=== PATIENT | female | born 1940 | race Caucasian/White ===

== ENCOUNTER 2024-08-07 17:55 | Inpatient (IN) | payer MEDICARE ==
[2024-08-07] MEDS ORDERED: Ketamine In 0.9 % NaCl 50 MG/5 ML SYRINGE ONE (18:01)
[2024-08-07] MEDS ORDERED: Rocuronium Bromide 10 MG/ML (10ML VIAL) ONE (18:03)
[2024-08-07 18:26] LABS: #Basophils 0.03 10x3/uL (0.0-0.2); %Basophils 0.5 % (0.0-1.0); %Eosinophils 3.8 % (0.0-10.0); %Lymphocytes 29.4 % (21.0-51.0); %Monocytes 9.1 % (0.0-10.0); Hematocrit 29.7 % (36.0-47.0); Hemoglobin 8.8 g/dL (12.0-16.0); Mean Corpuscular HGB CONC 29.6 g/dL (32.0-36.0); Mean Corpuscular Hemoglobin 25.4 pg (27.0-31.0); Mean Corpuscular Volume 85.8 fL (78.0-98.0); Mean Platelet Volume 11.7 fL (7.4-10.4); Platelet Count 137 10x3/uL (130-400); RBC Distribution Width 17.2 % (11.5-14.5); Red Blood Cell (RBC) Count 3.46 mill/uL (4.20-5.40)
[2024-08-07] MEDS ORDERED: Propofol 1,000 MG/100 ML VIAL IV ONE (18:26)
[2024-08-07 18:27] LABS: Actual Bicarbonate (HCO3a) 25.6 mEq/L (22-28); Analyzer IN Cardio ER; CO2 Tension 31.8 mmHg (35.0-45.0); Calcium, Ionized (arterial) 1.03 mmol/L (1.12-1.30); Carboxyhemoglobin (COHb) 0.2 gm% (0.0-3.0); Hematocrit-ABG 28 % (36.0-47.0); Hemoglobin (Hb) 9.6 g/dL (12.0-16.0); O2 Tension (PaO2), arterial 539.8 mmHg (> 60.0); Potassium - ABG Lab 3.07 mmol/L (3.70-5.30); pH, Arterial 7.524 (7.35-7.45)
[2024-08-07 18:36] LABS: ALT (SGPT) 10 U/L (8-55); AST (SGOT) 17 U/L (5-34); Albumin 2.5 g/dL (3.4-4.8); Alkaline Phosphatase 66 U/L (40-110); Anion Gap 7 mmol/L (10-20); BUN (Urea Nitrogen) 16 mg/dL (9.8-20.1); Bilirubin, Total 0.2 mg/dL (0.2-1.2); CK (CPK) 31 U/L (29-168); Calc. Creatinine Clearance 0 mL/min (70-130); Calcium 7.2 mg/dL (7.8-10.44); Carbon Dioxide 28 mmol/L (23-31); Chloride 108 mmol/L (98-107); Estimated GFR 72; Globulin 1.9 g/dL (2.4-3.5); Glucose 93 mg/dL (83-110); Magnesium 1.8 mg/dL (1.6-2.6); Potassium 2.9 mmol/L (3.5-5.1); Protein, Total 4.4 g/dL (5.8-8.1); Sodium 140 mmol/L (136-145)
[2024-08-07 18:37] LABS: Puncture Site Left Brachial artery
[2024-08-07 18:38] LABS: INR-International Normal Ratio 1.2; PTT 31.1 sec (22.9-36.1); Prothrombin Time 14.7 sec (12.0-14.7)
[2024-08-07 18:41] LABS: Troponin I 0.025 ng/mL (< 0.028)
[2024-08-07 18:41] LABS: Bacteria/HPF None Seen HPF (None Seen); Bilirubin Negative (Negative); Blood, Urine Negative (Negative); CAUTI Indications for Culture Alt mental st,lethar; Clarity Clear (Clear); Glucose, Urine (Dipstick) Normal (Negative); Ketone, Urine Negative (Negative); Leukocyte Negative Leu/uL (Negative); Nitrite Negative (Negative); Protein, Urine (Dipstick) Negative (Neg-Trace); RBC/HPF None Seen HPF (0-3); Specific Gravity, Urine 1.012 (1.002-1.036); Squamous Epithelial 0-3 HPF (0-3); Urobilinogen Normal mg/dL (Less than 2); WBC/HPF 0-3 HPF (0-3); pH, Urine 5.5 (5.0-9.0)
[2024-08-07 18:52] LABS: Urine Culture Reflex No No
[2024-08-07] MEDS ORDERED: NS 0.9% w/ 20 MEQ KCL 1,000 ML ONE (19:01)
[2024-08-07] MEDS ORDERED: Potassium Chloride 20 MEQ (100 mL) BAG ONE (19:01)
[2024-08-07 19:09] LABS: Amphetamine Not Detected (NotDetected); Barbiturates Screen Not Detected (NotDetected); Benzodiazepine Screen Detected (NotDetected); Cocaine Metabolite Screen Not Detected (NotDetected); Methadone Not Detected (NotDetected); Methamphetamine Not Detected (NotDetected); Opiate Screen Not Detected (NotDetected); Oxycodone Screen Not Detected (NotDetected); Phencyclidine (PCP) Not Detected (NotDetected); THC/Cannabinoid Screen Not Detected (NotDetected); Tricyclic Screen Not Detected (NotDetected)
[2024-08-07] MEDS ORDERED: Ondansetron ODT 4 MG TAB PO PRN (19:31)
[2024-08-07] MEDS ORDERED: Acetaminophen 650 MG Suppository PR PRN (19:31)
[2024-08-07] MEDS ORDERED: Ondansetron PF 4 MG/2 ML Vial IVP PRN (19:31)
[2024-08-07 19:43] LABS: Acetaminophen Less than 10 mcg/mL (Less than 10); Alcohol Less than 10.0 mg/dL (Less than 10); Salicylate Less than 8.0 mg/dL (Less than 8.0)
[2024-08-07] MEDS ORDERED: Fentanyl CADD 100 ML IV SCH (19:45)
[2024-08-07] MEDS ORDERED: Morphine 2 MG/ML VIAL SLOW IVP PRN (19:45)
[2024-08-07] MEDS ORDERED: DISCONTINUE PREVIOUS NARCOTIC PAIN MEDICATIONS AND BENZODIAZEPINES FS SCH (19:45)
[2024-08-07] MEDS ORDERED: Ventilator Sedation Protocol 1 EACH FS SCH (19:45)
[2024-08-07] MEDS ORDERED: Fentanyl BOLUS 250 ML IVPB PRN (19:45)
[2024-08-07] MEDS ORDERED: Propofol BOLUS 1,000 MG/100 ML VIAL IV PRN (19:45)
[2024-08-07] MEDS ORDERED: Lorazepam 2 MG/ML VIAL SLOW IVP PRN (19:45)
[2024-08-07] MEDS ORDERED: Dextrose 5% in Water 1,000 ML IV PRN (19:49)
[2024-08-07] MEDS ORDERED: Glucagon 1 MG/ML KIT IM PRN (19:49)
[2024-08-07] MEDS ORDERED: Electrolyte Replacement Protocol 1 EACH FS SCH (19:50)
[2024-08-07] MEDS ORDERED: Magnesium 2 GM/50 ML(in water) 2 GM in Premix 1 BAG IVPB SCH (20:00)
[2024-08-07] MEDS ORDERED: niCARdipine 40MG In NaCl 40 MG/200 ML BAG IVPB SCH (20:15)
[2024-08-07] MEDS ORDERED: niCARdipine 25 MG in Sodium Chloride 0.9% 250 ML 250 ML IVPB SCH (20:30)
[2024-08-07] MEDS: NS 0.9% w/ 40 MEQ KCL 1,000 ML IV SCH (20:58)
[2024-08-07] MEDS: Lisinopril 10 MG TAB PO SCH (20:59)
[2024-08-07] MEDS: Magnesium 2 GM/50 ML(in water) 2 GM in Premix 1 BAG IVPB SCH (20:59)
[2024-08-07] MEDS ORDERED: Famotidine 20 MG TAB PO SCH (21:00)
[2024-08-07] MEDS: Potassium Chloride 20 MEQ in Premix 1 BAG IVPB SCH (21:00)
[2024-08-07] MEDS: Atorvastatin Calcium 20 MG TAB PO SCH (21:00)
[2024-08-07] MEDS: Famotidine/PF 20 mg/2ml Vial SLOW IVP SCH (21:33)
[2024-08-07 22:10] VITALS: BMI 26.2
[2024-08-07] MEDS: hydrALAZINE 20 MG/ML VIAL SLOW IVP SCH (22:17)
[2024-08-07] MEDS ORDERED: Metoclopramide HCl 10 MG (2 mL) VIAL IVP PRN (23:09)
[2024-08-08] MEDS: Propofol 1,000 MG/100 ML VIAL IV PRN (03:24)
[2024-08-08 04:02] LABS: Anion Gap 8 mmol/L (10-20); BUN (Urea Nitrogen) 14 mg/dL (9.8-20.1); Calc. Creatinine Clearance 56 mL/min (70-130); Calcium 7.6 mg/dL (7.8-10.44); Carbon Dioxide 24 mmol/L (23-31); Chloride 113 mmol/L (98-107); Estimated GFR 83; Glucose 102 mg/dL (83-110); Potassium 4.2 mmol/L (3.5-5.1); Sodium 141 mmol/L (136-145)
[2024-08-08 04:05] LABS: #Basophils 0.03 10x3/uL (0.0-0.2); %Basophils 0.4 % (0.0-1.0); %Eosinophils 3.1 % (0.0-10.0); %Lymphocytes 28.4 % (21.0-51.0); %Monocytes 7.1 % (0.0-10.0); %Neutrophils 60.9 % (42.0-75.0); Hemoglobin 9.6 g/dL (12.0-16.0); Mean Corpuscular Hemoglobin 25.3 pg (27.0-31.0); Mean Corpuscular Volume 84.4 fL (78.0-98.0); Platelet Count 138 10x3/uL (130-400); RBC Distribution Width 17.3 % (11.5-14.5); Red Blood Cell (RBC) Count 3.79 mill/uL (4.20-5.40)
[2024-08-08] MEDS: Sodium Chloride 0.45% 1,000 ML IV SCH ×2 (05:05→12:40)
[2024-08-08] MEDS: Enoxaparin 40 MG (0.4 mL) SYRINGE SC SCH (08:54)
[2024-08-08] MEDS: Famotidine/PF 20 mg/2ml Vial SLOW IVP SCH (08:54)
[2024-08-08] MEDS ORDERED: Famotidine 20 MG TAB PO SCH (09:00)
[2024-08-08] MEDS: Lisinopril 20 MG TAB PO SCH (09:34)
[2024-08-08] MEDS: hydrALAZINE 20 MG/ML VIAL SLOW IVP PRN (11:22)
[2024-08-08] MEDS: Dextrose 50% Abboject 50 ML SYRINGE ONE (16:38)
[2024-08-08] MEDS: Dextrose 50% Abboject 50 ML SYRINGE SLOW IVP PRN (16:38)
[2024-08-08] MEDS: Dextrose 5%-Lactated Ringers 1,000 ML IV SCH (16:40)
[2024-08-09 04:56] LABS: Anion Gap 7 mmol/L (10-20); BUN (Urea Nitrogen) 9 mg/dL (9.8-20.1); Calc. Creatinine Clearance 61 mL/min (70-130); Calcium 7.9 mg/dL (7.8-10.44); Carbon Dioxide 25 mmol/L (23-31); Chloride 112 mmol/L (98-107); Estimated GFR 86; Glucose 104 mg/dL (83-110); Potassium 3.9 mmol/L (3.5-5.1); Sodium 140 mmol/L (136-145)
[2024-08-09 04:58] LABS: #Basophils Less than 0.03 10x3/uL (0.0-0.2); %Basophils 0.2 % (0.0-1.0); %Eosinophils 3.6 % (0.0-10.0); %Lymphocytes 16.9 % (21.0-51.0); %Monocytes 8.2 % (0.0-10.0); %Neutrophils 70.8 % (42.0-75.0); Hematocrit 35.8 % (36.0-47.0); Hemoglobin 10.9 g/dL (12.0-16.0); Mean Corpuscular HGB CONC 30.4 g/dL (32.0-36.0); Mean Corpuscular Hemoglobin 25.2 pg (27.0-31.0); Mean Corpuscular Volume 82.9 fL (78.0-98.0); Mean Platelet Volume 11.7 fL (7.4-10.4); Platelet Count 128 10x3/uL (130-400); RBC Distribution Width 18.2 % (11.5-14.5); Red Blood Cell (RBC) Count 4.32 mill/uL (4.20-5.40)
[2024-08-09 07:27] LABS: Base Excess (BEa) 0.4 mEq/L (-2.0 to +3.0); CO2 Tension 34.7 mmHg (35.0-45.0); Calcium, Ionized (arterial) 1.19 mmol/L (1.12-1.30); Hematocrit-ABG 34 % (36.0-47.0); Hemoglobin (Hb) 11.5 g/dL (12.0-16.0); O2 Tension (PaO2), arterial 132.2 mmHg (> 60.0); Potassium - ABG Lab 3.79 mmol/L (3.70-5.30); pH, Arterial 7.457 (7.35-7.45)
[2024-08-09 07:30] LABS: ALV-art Gradient 73.975 mmHg (0-20); Puncture Site Left Radial artery
[2024-08-09] MEDS: Lisinopril 20 MG TAB PO SCH (08:18)
[2024-08-09] MEDS: DC Sedation Protocol FS ONE (09:37)
[2024-08-09] MEDS: Carvedilol 6.25 MG TAB PO SCH ×2 (12:20→16:53)
[2024-08-10 05:25] LABS: #Basophils Less than 0.03 10x3/uL (0.0-0.2); %Basophils 0.1 % (0.0-1.0); %Eosinophils 1.4 % (0.0-10.0); %Lymphocytes 12.6 % (21.0-51.0); %Neutrophils 76.5 % (42.0-75.0); Hemoglobin 10.9 g/dL (12.0-16.0); Mean Corpuscular HGB CONC 29.5 g/dL (32.0-36.0); Mean Corpuscular Hemoglobin 25.3 pg (27.0-31.0); Mean Platelet Volume 11.6 fL (7.4-10.4); Platelet Count 151 10x3/uL (130-400); RBC Distribution Width 18.6 % (11.5-14.5)
[2024-08-10 05:40] LABS: Anion Gap 10 mmol/L (10-20); BUN (Urea Nitrogen) 8 mg/dL (9.8-20.1); Calc. Creatinine Clearance 62 mL/min (70-130); Calcium 8.1 mg/dL (7.8-10.44); Carbon Dioxide 25 mmol/L (23-31); Chloride 109 mmol/L (98-107); Estimated GFR 85; Glucose 111 mg/dL (83-110); Sodium 140 mmol/L (136-145)
[2024-08-10] MEDS: Labetalol HCl 100 MG/20 ML VIAL SLOW IVP PRN (10:44)
[2024-08-11 12:12] LABS: #Basophils 0.03 10x3/uL (0.0-0.2); %Basophils 0.3 % (0.0-1.0); %Eosinophils 1.8 % (0.0-10.0); %Lymphocytes 17.2 % (21.0-51.0); %Monocytes 9.2 % (0.0-10.0); %Neutrophils 71.2 % (42.0-75.0); Hematocrit 39.1 % (36.0-47.0); Hemoglobin 11.1 g/dL (12.0-16.0); Mean Corpuscular HGB CONC 28.4 g/dL (32.0-36.0); Mean Corpuscular Volume 88.1 fL (78.0-98.0); Mean Platelet Volume 11.5 fL (7.4-10.4); Platelet Count 140 10x3/uL (130-400); RBC Distribution Width 18.6 % (11.5-14.5); Red Blood Cell (RBC) Count 4.44 mill/uL (4.20-5.40)
[2024-08-11 12:50] LABS: Anisocytosis SLIGHT = 6-15 cells HPF (0-5); Ovalocytes SLIGHT = 2-5 cells HPF (0-1); Platelet Adequacy Comment Platelets Normal; Polychromasia SLIGHT = 2-3 cells HPF (0-2)
[2024-08-11] MEDS: Gabapentin 100 MG CAP PO SCH (16:07)
[2024-08-11] MEDS: CeleCOXIB 100 MG CAP PO SCH (20:42)
[2024-08-11] MEDS: Lisinopril 10 MG TAB PO SCH (20:43)
[2024-08-11] MEDS: Acetaminophen 325 MG TAB PO PRN (20:44)
[2024-08-11] MEDS: hydrALAZINE 20 MG/ML VIAL SLOW IVP SCH (21:11)
[2024-08-11 21:52] LABS: ALT (SGPT) 10 U/L (8-55); AST (SGOT) 18 U/L (5-34); Albumin 2.4 g/dL (3.4-4.8); Alkaline Phosphatase 83 U/L (40-110); Anion Gap 11 mmol/L (10-20); BUN (Urea Nitrogen) 12 mg/dL (9.8-20.1); Bilirubin, Total 0.4 mg/dL (0.2-1.2); Calc. Creatinine Clearance 51 mL/min (70-130); Calcium 8.3 mg/dL (7.8-10.44); Carbon Dioxide 27 mmol/L (23-31); Chloride 106 mmol/L (98-107); Estimated GFR 77; Globulin 2.7 g/dL (2.4-3.5); Glucose 108 mg/dL (83-110); Potassium 3.8 mmol/L (3.5-5.1); Protein, Total 5.1 g/dL (5.8-8.1); Sodium 140 mmol/L (136-145)
[2024-08-12 08:19] LABS: Anion Gap 10 mmol/L (10-20); BUN (Urea Nitrogen) 12 mg/dL (9.8-20.1); Calc. Creatinine Clearance 53 mL/min (70-130); Calcium 8.5 mg/dL (7.8-10.44); Carbon Dioxide 26 mmol/L (23-31); Chloride 107 mmol/L (98-107); Estimated GFR 76; Glucose 88 mg/dL (83-110); Potassium 3.7 mmol/L (3.5-5.1); Sodium 139 mmol/L (136-145)
[2024-08-12 08:21] LABS: Mean Corpuscular Volume 81.4 fL (78.0-98.0)
[2024-08-12 08:55] LABS: Platelet Adequacy Comment Platelets Decreased; Polychromasia SLIGHT = 2-3 cells HPF (0-2)
[2024-08-12 08:57] LABS: #Basophils Less than 0.03 10x3/uL (0.0-0.2); %Basophils 0.2 % (0.0-1.0); %Eosinophils 3.3 % (0.0-10.0); %Lymphocytes 28.1 % (21.0-51.0); %Monocytes 8.8 % (0.0-10.0); %Neutrophils 59.2 % (42.0-75.0); Hematocrit 34.1 % (36.0-47.0); Hemoglobin 10.3 g/dL (12.0-16.0); Mean Corpuscular HGB CONC 30.4 g/dL (32.0-36.0); Mean Corpuscular Hemoglobin 24.8 pg (27.0-31.0); Mean Platelet Volume 11.9 fL (7.4-10.4); Platelet Count 113 10x3/uL (130-400); RBC Distribution Width 18.4 % (11.5-14.5)
[2024-08-12] MEDS: Isosorbide Mononitrate 60 MG ER.TAB PO SCH (09:12)
[2024-08-12] MEDS: Cyanocobalamin (Vitamin B-12) 1,000 MCG TAB PO SCH (09:12)
[2024-08-12] MEDS: Furosemide 20 MG TAB PO SCH (09:12)
[2024-08-12] MEDS: Aspirin 81 mg Enteric Coated Tablet PO SCH (09:13)
[2024-08-12] MEDS: Venlafaxine HCl XR 150 MG CAP PO SCH (09:17)
[2024-08-12 12:32] VITALS: BMI 26.9
[2024-08-13] MEDS: Lisinopril 10 MG TAB PO SCH (04:56)
[2024-08-13] MEDS: NIFEdipine XL 30 MG ER.TAB PO SCH (13:44)
[2024-08-13] MEDS: Lisinopril 20 MG TAB PO SCH (21:32)
[2024-08-14] MEDS: hydrALAZINE 20 MG/ML VIAL SLOW IVP SCH (04:04)
[2024-08-14] MEDS: NIFEdipine XL 30 MG ER.TAB PO SCH (08:39)
[2024-08-14] MEDS ORDERED: Ondansetron PF 4 MG/2 ML Vial IVP PRN (12:41)
[2024-08-15 10:40] VITALS: TEMP 97.6
[2024-08-15] MEDS: ALPRAZolam 0.5 MG TAB PO SCH (11:21)
[2024-08-15 16:42] VITALS: BP 124/76
== END 2024-08-15 16:02 | disposition home or self-care (01) | DRG 917 ==
LOC: ERS 17:55 → SUATTDRO 17:55 → CCU 18:53 → T4-B 20:04
PROVIDERS: ADMIT Family Medicine; ATTEND Internal Medicine
PROC: 0BH17EZ Insertion of Endotracheal Airway into Trachea, Via Natural or Artificial Opening (ICD-10-PCS; principal; 2024-08-07)
PROC: 4A133R1 Monitoring of Arterial Saturation, Peripheral, Percutaneous Approach (ICD-10-PCS; 2024-08-07)
PROC: 5A1945Z Respiratory Ventilation, 24-96 Consecutive Hours (ICD-10-PCS; 2024-08-07)
PROC: 02H633Z Insertion of Infusion Device into Right Atrium, Percutaneous Approach (ICD-10-PCS; 2024-08-07)
PROC: 0DH63UZ Insertion of Feeding Device into Stomach, Percutaneous Approach (ICD-10-PCS; 2024-08-07)
DX: T42.4X2A Poisoning by benzodiazepines, intentional self-harm, initial encounter (principal); J96.00 Acute respiratory failure, unspecified whether with hypoxia or hypercapnia; J96.02 Acute respiratory failure with hypercapnia; I25.10 Atherosclerotic heart disease of native coronary artery without angina pectoris; I11.0 Hypertensive heart disease with heart failure; I50.9 Heart failure, unspecified; E78.5 Hyperlipidemia, unspecified; M19.90 Unspecified osteoarthritis, unspecified site; Z66 Do not resuscitate; F41.9 Anxiety disorder, unspecified; M79.7 Fibromyalgia; X58.XXXA Exposure to other specified factors, initial encounter; E87.6 Hypokalemia; R94.31 Abnormal electrocardiogram [ECG] [EKG]; K21.9 Gastro-esophageal reflux disease without esophagitis; F32.9 Major depressive disorder, single episode, unspecified; I25.2 Old myocardial infarction; Z95.5 Presence of coronary angioplasty implant and graft; Z95.0 Presence of cardiac pacemaker; Z90.49 Acquired absence of other specified parts of digestive tract; Z90.710 Acquired absence of both cervix and uterus; Z88.5 Allergy status to narcotic agent; Z88.2 Allergy status to sulfonamides; Z88.7 Allergy status to serum and vaccine
CPT/HCPCS: 31500; 36415; 36416; 36556; 36600; 51702; 70450; 71045; 80048; 80053; 80306; 80307; 81001; 82550; 82805; 83605; 83735; 84443; 84484; 85025; 85610; 85730; 87040; 93005; 93010; 94002; 94003; 94760; 96374; J0360; J1650; J2704; J3475; J3480; J3490; J7999